=== PATIENT | female | born 1940 | race Caucasian/White ===

== ENCOUNTER 2023-01-30 13:48 | Outpatient (CLI) | payer OTHER ==
[~2023-01-30 13:48] MED LIST: ASCO500C18 PO; ASPI-1071 PO; BARIUM SULFATE 700 MG TABLET PO ONE; BIFI1CAP; CHOL2000 PO; CRANBERRY; DULO-31 PO; FERR325T28 PO; FEXO180T94 PO; MAGN400C PO; MONT-40 PO; OMEP40CA21 PO; OXYC-145 PO; PREG150C PO; TOP100T PO; [UNRECOGNIZED DRUG - CODE] PO
== END 2023-01-30 23:59 | disposition home or self-care (01) ==
LOC: RAD 13:48
PROVIDERS: ATTEND Family Medicine
DX: R13.14 Dysphagia, pharyngoesophageal phase (principal); R13.10 Dysphagia, unspecified; K21.9 Gastro-esophageal reflux disease without esophagitis
CPT/HCPCS: 74230